=== PATIENT | male | born 1965 | race Caucasian/White ===

== ENCOUNTER 2016-08-31 18:58 | Emergency (ER) | payer OTHER ==
[~2016-08-31] VITALS: Ht 175.3 cm; Wt 92.4 kg
[2016-08-31 20:12] LABS: HEMATOCRIT 49.5 % (38.0-50.0); MCH 32.3 PG (29.0-34.0); MCHC 35.2 G/DL (30.0-36.0); MEAN PLAT.VOLUME 9.9 uM^3 (9.0-12.4); PLATELET COUNT 176 K/uL (156-360); RBC DIS.WIDTH-CV 11.9 % (11.8-14.6); RBC DIS.WIDTH-SD 40.4 % (39-53); RED BLOOD COUNT 5.38 M/uL (4.00-5.50); WHITE BLOOD COUNT 8.4 K/uL (4.1-10.2)
[2016-08-31 20:22] LABS: CHLORIDE 101 mEq/L (99-109); SODIUM 137 mEq/L (136-147)
[2016-08-31 20:23] LABS: MAGNESIUM 2.1 mg/dL (1.3-2.7)
[2016-08-31 20:24] LABS: GLUCOSE 98 mg/dL (70-99)
[2016-08-31 20:25] LABS: ANION GAP 13 MEQ/L (2-14)
[2016-08-31 20:28] LABS: GFR ESTIMATE (CALCULATED) 48 mL/min/
[2016-08-31 20:29] LABS: UREA NITROGEN (BUN) 28 mg/dL (9-23)
[2016-08-31 20:36] LABS: TROP-I INTERPRETATION NEGATIVE; TROPONIN-I < 0.01 ng/mL (0.0-0.30)
[2016-08-31 21:30] VITALS: BP 117/84
== END 2016-08-31 21:51 | disposition home or self-care (01) ==
LOC: EME → EDBD 18:58 → EME 21:51
PROVIDERS: Emergency Medicine
DX: R55 Syncope and collapse (principal)
CPT/HCPCS: 70450; 80048; 83735; 84484; 85027; 93005; 99281; 99284; J7030

== ENCOUNTER 2017-12-12 18:28 | Emergency (ER) | payer OTHER ==
[~2017-12-12] VITALS: Ht 175.3 cm; Wt 93.5 kg
[2017-12-12 19:14] LABS: HEMATOCRIT 51.3 % (38.0-50.0); HEMOGLOBIN 18.3 G/DL (12.5-16.6); MCH 33.1 PG (29.0-34.0); MCHC 35.7 G/DL (30.0-36.0); MCV 92.8 FL (86-99); PLATELET COUNT 174 K/uL (156-360); RBC DIS.WIDTH-CV 11.9 % (11.8-14.6); RBC DIS.WIDTH-SD 40.9 % (39-53); RED BLOOD COUNT 5.53 M/uL (4.00-5.50); WHITE BLOOD COUNT 8.1 K/uL (4.1-10.2)
[2017-12-12 19:28] LABS: CHLORIDE 100 mEq/L (99-109); POTASSIUM 4.4 mEq/L (3.7-5.4); SODIUM 137 mEq/L (136-147)
[2017-12-12 19:29] LABS: GLUCOSE 159 mg/dL (70-99)
[2017-12-12 19:33] LABS: CREATININE 2.9 mg/dL (0.6-1.3); GFR ESTIMATE (CALCULATED) 24 mL/min/ (58.99-99999)
[2017-12-12 19:34] LABS: UREA NITROGEN (BUN) 32 mg/dL (9-23)
[2017-12-12 21:15] LABS: TROP-I INTERPRETATION NEGATIVE; TROPONIN-I < 0.01 ng/mL (0.0-0.30)
[2017-12-12 21:27] LABS: APPEARANCE SL.HAZY ((CLEAR)); BILIRUBIN NEGATIVE; BLOOD NEGATIVE; COLOR YELLOW ((YELLOW)); GLUCOSE (STRIP) NEGATIVE; KETONES NEGATIVE; LEUKOCYTES NEGATIVE; NITRITE NEGATIVE; PROTEIN (STRIP) 30; UROBILINOGEN 0.2 MG/DL (0.2-1.0)
[2017-12-12 21:38] LABS: BACTERIA RARE /HPF; EPITHELIAL CELLS RARE /HPF; HYALINE CASTS TNTC /LPF; MUCUS 1+ /LPF; RED BLOOD CELLS 0-5 /HPF (0-5); WHITE BLOOD CELLS 0-5 /HPF (0-5)
[2017-12-12 22:46] LABS: UR CREATININE CONCENTRATION 329.9 MG/DL
[2017-12-12 22:50] VITALS: BP 103/57
== END 2017-12-12 22:52 | disposition home or self-care (01) ==
LOC: EME 18:28
PROVIDERS: Emergency Medicine
DX: N18.9 Chronic kidney disease, unspecified (principal); N02.8 Recurrent and persistent hematuria with other morphologic changes; T67.5XXA Heat exhaustion, unspecified, initial encounter; X30.XXXA Exposure to excessive natural heat, initial encounter; Y99.0 Civilian activity done for income or pay; R42 Dizziness and giddiness; R55 Syncope and collapse; R06.02 Shortness of breath
CPT/HCPCS: 71046; 76770; 80048; 81003; 82570; 84156; 84484; 85027; 93005; 99281; 99285; J7030